=== PATIENT | female | born 1960 | race American Indian/Alaskan Native ===

== ENCOUNTER 2017-03-02 10:55 | Emergency (ER) | payer MEDICAID, OTHER ==
[2017-03-02 11:19] VITALS: BP 161/88
[2017-03-02 11:34] LABS: CHLORIDE,CL 102 mEq/L (98-106); SODIUM,NA 139 mEq/L (136-145)
--- NOTE | 2017-03-02 11:59 | EDM.PDOC ---
ED HPI GENERAL MEDICAL PROBLEM - General Chief Complaint: General Stated Complaint: HEADACHE, DIZZY Time Seen by Provider: 03/02/17 11:40 Source of Information: Reports: Patient, Family History Limitations: Reports: No Limitations - History of Present Illness INITIAL COMMENTS - FREE TEXT/NARRATIVE: Had 2 episodes last night where she had pain in the back of her head that would come up over the top of her head and cause severe pain into her right eye. [place] that part of the right side of her face would go numb and tingled. This lasted about 30-45 minutes and then it completely disappeared and she was fine again. This happened again this morning and presented to the ER. She denies any weakness to the extremities or unilateral facial drooping. Symptoms are resolved when arriving here. Denied any changes in vision with this. States that her blood sugars are very out of control. Doctors at [facility] in [place] for this. Hasn't seen a Dr. in over 6 months and her fastings typically run over 300 lately. Has not adjusted any of her insulin as she hasn' t talked to provider and she didn't know how to on her own. She has been very fatigued also. Onset: Gradual Location: Reports: Head Quality: Reports: Sharp Associated Symptoms: Denies: Chest Pain, Fever/Chills, Nausea/Vomiting, Weakness - Related Data Allergies Allergy/AdvReac Type Severity Reaction Status Date / Time pineapple Allergy Airway Verified 11/12/15 13:51 Tightness shellfish derived Allergy Airway Verified 11/12/15 13:51 Tightness venom-honey bee Allergy Anaphylactic Verified 11/12/15 13:51 [bee venom (honey bee)] Shock Home Meds: Home Meds EPINEPHrine [Epipen] 0.3 mg IM ASDIRECTED PRN 11/12/15 [History] Hydrocodone/Acetaminophen [Hydrocodon-Acetaminoph 7.5-325] 1 - 2 tab PO Q4H PRN 11/12/15 [History] Ibuprofen 200 mg PO Q4H PRN 11/12/15 [History] Insulin Aspart [NovoLOG] 25 unit SUBCUT TIDMEALS 11/12/15 [History] Insulin Detemir [Levemir] 50 units SUBCUT BEDTIME 11/12/15 [History] Meclizine HCl 25 mg PO TID PRN 11/12/15 [History] Pseudoephedrine HCl [Sudafed] 30 mg PO DAILY PRN 11/12/15 [History] Rosuvastatin [Crestor] 10 mg PO DAILY 11/12/15 [History] metFORMIN HCl [Glucophage] 500 mg PO DAILY 11/12/15 [History] Past Medical History HEENT History: Reports: Allergic Rhinitis Cardiovascular History: Reports: High Cholesterol, Hypertension Neurological History: Reports: Vertigo Endocrine/Metabolic History: Reports: Diabetes, Type II - Past Surgical History Female Surgical History: Reports: Section Social & Family History - Family History Family Medical History: Noncontributory - Tobacco Use Smoking Status *Q: Current Every Day Smoker Years of Tobacco use: 40 Packs/Tins Daily: 1 - Recreational Drug Use Recreational Drug Use: No ED ROS GENERAL - Review of Systems Review Of Systems: See Below Constitutional: Reports: No Symptoms HEENT: Reports: Eye Pain. Denies: Vision Change Respiratory: Reports: No Symptoms Cardiovascular: Reports: No Symptoms GI/Abdominal: Reports: No Symptoms : Reports: No Symptoms Musculoskeletal: Reports: No Symptoms Skin: Reports: No Symptoms Neurological: Reports: Headache, Numbness, Tingling ED EXAM, GENERAL - Physical Exam Exam: See Below Exam Limited By: No Limitations General Appearance: Alert, WD/WN, No Apparent Distress. No: Anxious Eye Exam: Bilateral Eye: Normal Inspection, PERRL Ears: Normal External Exam, Normal Canal, Normal TMs Nose: Normal Inspection Throat/Mouth: Normal Inspection, Normal Oropharynx, Normal Voice, No Airway Compromise Head: Atraumatic, Normocephalic Neck: Normal Inspection, Supple, Non-Tender, Full Range of Motion Respiratory/Chest: No Respiratory Distress, Lungs Clear, Normal Breath Sounds Cardiovascular: Normal Peripheral Pulses, Regular Rate, Rhythm, No Edema GI/Abdominal: Normal Bowel Sounds, Soft, Non-Tender, No Organomegaly Extremities: Normal Inspection, Normal Capillary Refill Neurological: Alert, Oriented Skin Exam: Warm, Dry, Intact Course - Vital Signs Last Recorded V/S: Last Vital Signs Temp 97.9 F 03/02/17 11:09 Pulse 89 03/02/17 11:09 Resp 18 03/02/17 11:09 BP 161/88 H 03/02/17 11:09 Pulse Ox 95 03/02/17 11:09 - Orders/Labs/Meds Labs: Laboratory Tests 03/02/17 03/02/17 03/02/17 Range/Units 11:07 11:07 11:10 WBC 12.5 H (5.0-10.0) 10^3/uL RBC 5.28 (4.00-5.50) 10^6/uL Hgb 15.1 (12.0-16.0) g/dL Hct 46.5 (37.0-47.0) % MCV 88.1 (82.0-94.0) fL MCH 28.6 (27.0-32.0) pg MCHC 32.5 L (33.0-38.0) g/dL RDW Coeff of Jere 14.4 (11.0-15.0) % Plt Count 187 (150-400) 10^3/uL Neut % (Auto) 59.5 (35-85) % Lymph % (Auto) 30.8 (10-55) % [place] % (Auto) 7.0 (0-16) % Eos % (Auto) 2.3 (0-5) % Baso % (Auto) 0.4 (0-3) % Neut # (Auto) 7.42 H (1.80-7.00) 10^3/uL Lymph # (Auto) 3.84 (1.00-4.80) 10^3/uL [place] # (Auto) 0.87 H (0.00-0.80) 10^3/uL Eos # (Auto) 0.29 (0.00-0.45) 10^3/uL Baso # (Auto) 0.05 10^3/uL Sodium 139 (136-145) mEq/L Potassium 4.8 D (3.5-5.0) mEq/L Chloride 102 (98-106) mEq/L Carbon Dioxide 28 (21-32) mmol/L BUN 12 (7-18) mg/dL Creatinine 0.9 (0.6-1.0) mg/dL Est Cr Clr Drug Dosing 55.86 mL/min Estimated GFR (MDRD) > 60 (>=60) mL/min Glucose 369 H* D (75-99) mg/dL Calcium 10.0 (8.4-10.1) mg/dL Total Bilirubin 0.5 (0.0-1.0) mg/dL AST 41 H (15-37) U/L ALT 106 H (12-78) U/L Alkaline Phosphatase 120 H (46-116) U/L C-Reactive Protein 0.9 H (0.2-0.8) mg/dL Total Protein 7.1 (6.4-8.2) g/dL Albumin 3.3 L (3.4-5.0) g/dL Urine Color Yellow (YELLOW) Urine Appearance Clear (CLEAR) Urine pH 5.5 (4.5-8.0) Ur Specific [place] 1.015 (1.003-1.020) Urine Protein Negative (NEGATIVE) mg/dL Urine Glucose (UA) >=1000 H (NEGATIVE) mg/dL Urine Ketones Negative (NEGATIVE) mg/dL Urine Occult Blood Negative (NEGATIVE) Urine Nitrite Negative (NEGATIVE) Urine Bilirubin Negative (NEGATIVE) Urine Urobilinogen 0.2 (0.2-1.0) EU/dL Ur Leukocyte Esterase Negative (NEGATIVE) Urine RBC Not seen (0-5) /HPF Urine WBC Not seen (0-5) /HPF Ur Squamous Epith Cells Few H (NOT SEEN) /HPF - Re-Assessments/Exams Free Text/Narrative Re-Assessment/Exam: 03/02/17 12:30 In to discuss normal CT results. Discussed need to get blood sugars under better control and will adjust insulin today. She states that she has appt at [facility] on 03/13/17 and will hopefully transfer care to here as she now will qualify for medicaid. Will schedule carotid ultrasound in the near future. 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 appt on March 13 as scheduled Important to get your blood sugars back into control as soon as possible - Problem List & Annotations (1) Diabetes SNOMED Code(s): 15146317 Code(s): E11.9 - TYPE 2 DIABETES MELLITUS WITHOUT COMPLICATIONS Status: Acute Priority: High Qualifiers: Diabetes mellitus type: type 2 Diabetes mellitus complication status: with unspecified complications Diabetes mellitus long term care administrator insulin use: with half-way use Qualified Code(s): E11.8 - Type 2 diabetes mellitus with unspecified complications; Z79.4 - intermediate frame tender (current) use of insulin; Z79.4 - prison ( current) use of insulin; Z79.4 - intermediate frame tender (current) use of insulin; Z79.4 - prison (current) use of insulin (2) Headache SNOMED Code(s): 32495161 Code(s): R51 - HEADACHE Status: Acute Priority: Medium Qualifiers: Headache type: unspecified Headache chronicity pattern: acute headache Intractability: not intractable Qualified Code(s): R51 - Headache (3) TIA (transient ischemic attack) SNOMED Code(s): 966164954 Code(s): G45.9 - TRANSIENT CEREBRAL ISCHEMIC ATTACK, UNSPECIFIED Status: Acute Priority: High Qualifiers: Transient cerebral ischemia type: unspecified Qualified Code(s): G45.9 - Transient cerebral ischemic attack, unspecified - Problem List Review Problem List Initiated/Reviewed/Updated: Yes
== END 2017-03-02 12:15 | disposition home or self-care (01) ==
LOC: CC.ED 10:55
DX: G45.9 Transient cerebral ischemic attack, unspecified (principal); E11.8 Type 2 diabetes mellitus with unspecified complications; I10 Essential (primary) hypertension; E78.00 Pure hypercholesterolemia, unspecified; E11.9 Type 2 diabetes mellitus without complications; F17.210 Nicotine dependence, cigarettes, uncomplicated; Z79.4 Long term (current) use of insulin; Z79.899 Other long term (current) drug therapy; Z91.030 Bee allergy status; Z91.018 Allergy to other foods
CPT/HCPCS: 36415; 70450; 80053; 81001; 85025; 86140; 99284

== ENCOUNTER 2017-05-25 20:04 | Emergency (ER) | payer MEDICAID, OTHER ==
--- NOTE | 2017-05-25 20:20 | EDM.PDOC ---
ED HPI GENERAL MEDICAL PROBLEM - General Chief Complaint: Upper Extremity Injury/Pain Stated Complaint: R)SHOULDER PAIN Time Seen by Provider: 05/25/17 20:19 Source of Information: Reports: Patient History Limitations: Reports: No Limitations - History of Present Illness INITIAL COMMENTS - FREE TEXT/NARRATIVE: This patient is a 56 year old female that presents to the ER. Patient reports that she has a history of having chronic right shoulder pain with multiple surgeries and PT. Patient reports a couple of times a year her right shoulder flares up and has increased pain. She reports that she does not recall injury new. Patient reports that the shoulder hurts to move. She reports this is her chronic pain that is having a flare. Patient reports full ROM makes it hurt worse. She reports keeping arm in sling position improves pain. Patient denies galvan, dizziness, n, v, d, f, neck pain, neck stiffness, cp, soa, abd pain. Pulses +2, cap refill <2 sec, sensory intact. Neurovascular intact. Motor decreased due to pain. Onset: Today Onset Date: 05/25/17 Onset Time: 09:30 Location: Reports: Upper Extremity, Right Quality: Reports: Ache, Same as Previous Episode, Throbbing Severity: Moderate Improves with: Reports: Immobilization Worsens with: Reports: Movement Associated Symptoms: Denies: Confusion, Chest Pain, Cough, cough w sputum, Diaphoresis, Fever/Chills, Headaches, Loss of Appetite, Malaise, Nausea/Vomiting , Rash, Seizure, Shortness of Breath, Syncope, Weakness Right Shoulder Pain Score (Numeric/FACES): 7 - Related Data Allergies Allergy/AdvReac Type Severity Reaction Status Date / Time pineapple Allergy Airway Verified 05/25/17 20:12 Tightness shellfish derived Allergy Airway Verified 05/25/17 20:12 Tightness venom-honey bee Allergy Anaphylactic Verified 05/25/17 20:12 [bee venom (honey bee)] Shock Home Meds: Home Meds EPINEPHrine [Epipen] 0.3 mg IM ASDIRECTED PRN 11/12/15 [History] Hydrocodone/Acetaminophen [Hydrocodon-Acetaminoph 7.5-325] 1 - 2 tab PO Q4H PRN 11/12/15 [History] Ibuprofen 200 mg PO Q4H PRN 11/12/15 [History] Insulin Aspart [NovoLOG] 25 unit SUBCUT TIDMEALS 08/26/16 [History] Insulin Detemir [Levemir] 50 units SUBCUT BEDTIME 11/12/15 [History] Meclizine HCl 25 mg PO TID PRN 11/12/15 [History] Pseudoephedrine HCl [Sudafed] 30 mg PO DAILY PRN 11/12/15 [History] Rosuvastatin [Crestor] 10 mg PO DAILY 11/12/15 [History] metFORMIN HCl [Glucophage] 500 mg PO DAILY 11/12/15 [History] Past Medical History HEENT History: Reports: Allergic Rhinitis Cardiovascular History: Reports: High Cholesterol, Hypertension Neurological History: Reports: Vertigo Endocrine/Metabolic History: Reports: Diabetes, Type II - Past Surgical History Female Surgical History: Reports: Section Musculoskeletal Surgical History: Reports: Shoulder Surgery Social & Family History - Family History Family Medical History: Noncontributory - Tobacco Use Smoking Status *Q: Current Every Day Smoker Years of Tobacco use: 30 Packs/Tins Daily: 1 - Caffeine Use Caffeine Use: Reports: Coffee - Recreational Drug Use Recreational Drug Use: No Review of Systems - Review of Systems Review Of Systems: See Below Constitutional: Reports: No Symptoms Eyes: Reports: No Symptoms Ears: Reports: No Symptoms Nose: Reports: No Symptoms Mouth/Throat: Reports: No Symptoms Respiratory: Reports: No Symptoms Cardiovascular: Reports: No Symptoms GI/Abdominal: Reports: No Symptoms Genitourinary: Reports: No Symptoms Musculoskeletal: Reports: Shoulder Pain (Right), Joint Pain (Right shoulder). Denies: Neck Pain, Arm Pain, Back Pain, Hand Pain, Leg Pain, Foot Pain, Joint Swelling, Muscle Pain, Muscle Stiffness Skin: Reports: No Symptoms Neurological: Reports: No Symptoms Psychiatric: Reports: No Symptoms ED EXAM, GENERAL - Physical Exam Exam: See Below Exam Limited By: No Limitations General Appearance: Alert, WD/WN, No Apparent Distress Head: Atraumatic, Normocephalic Neck: Normal Inspection, Supple, Non-Tender, Full Range of Motion Respiratory/Chest: No Respiratory Distress, Lungs Clear, Normal Breath Sounds, No Accessory Muscle Use, Chest Non-Tender Cardiovascular: Normal Peripheral Pulses, Regular Rate, Rhythm, No Edema, No Gallop, No JVD, No Murmur, No Rub Peripheral Pulses: 2+: Brachial (L), Brachial (R), Radial (L), Radial (R) Back Exam: Normal Inspection, Full Range of Motion. No: Muscle Spasm, Paraspinal Tenderness, Vertebral Tenderness Extremities: Normal Inspection, No Pedal Edema, Normal Capillary Refill, Other ( Right shoulder anterior/posterior pain, tenderness. ROM intact, but limited to pain. Pain easily manipulated. Pulses +2, cap refill <2 sec, sensory intact. Neurovascular intact. ) Neurological: Alert, Oriented, Normal Cognition, Normal Gait Psychiatric: Normal Affect, Normal Mood Skin Exam: Warm, Dry, Intact, Normal Color, No Rash Lymphatic: No Adenopathy Course - Vital Signs Last Recorded V/S: Last Vital Signs Temp 96.7 F 05/25/17 20:05 Pulse 107 H 05/25/17 20:05 Resp 20 05/25/17 20:05 BP 131/100 H 05/25/17 20:05 Pulse Ox 96 05/25/17 20:05 - Orders/Labs/Meds Meds: Medications Discontinued Medications Generic Name Dose Route Start Last Admin Trade Name Jayjay PRN Reason Stop Dose Admin Ketorolac Tromethamine 60 mg 05/25/17 20:28 05/25/17 20:34 Toradol IM 05/25/17 20:29 60 mg ONETIME ONE Administration Methylprednisolone Sodium Succinate 125 mg 05/25/17 20:25 05/25/17 20:35 Solu-Medrol IM 05/25/17 20:26 125 mg NOW STA Administration Morphine Sulfate 4 mg 05/25/17 20:24 05/25/17 20:36 Morphine IM 05/25/17 20:25 Not Given ONETIME ONE Ondansetron HCl 4 mg 05/25/17 20:24 05/25/17 20:30 Zofran Odt PO 05/25/17 20:25 4 mg ONETIME ONE Administration Departure - Departure Time of Disposition: 20:27 Disposition: Home, Self-Care 01 Condition: Good Clinical Impression: Right shoulder pain Qualifiers: Chronicity: chronic Qualified Code(s): M25.511 - Pain in right shoulder - Discharge Information Instructions: Shoulder Pain Referrals: Rhina Castellanos PA [Primary Care Provider] - Forms: ED Department Discharge Additional Instructions: Followup with your primary care provider Return to the ER for worsening of condition or any emergent concerns Rest Ice Elevate Sling as needed Prednisone 20mg 1 pll twice a day for 5 days #10 no refill - Assessment/Plan Plan: PLEASE SEE RN NOTE FOR PFSH.
[2017-05-25] MEDS ORDERED: Ondansetron 4 MG Tab.DIS PO ONE (20:24)
[2017-05-25] MEDS ORDERED: Morphine 4 MG/ML Syringe IM ONE (20:24)
[2017-05-25] MEDS ORDERED: methylPREDNISolone Sodium Succinate 125 MG/2 ML SDV IM STA (20:25)
[2017-05-25] MEDS ORDERED: Ketorolac 60 MG/2 ML SDV IM ONE (20:28)
[2017-05-25 20:52] VITALS: BP 138/79
== END 2017-05-25 20:50 | disposition home or self-care (01) ==
LOC: CC.ED 20:04
DX: G89.29 Other chronic pain (principal); M25.511 Pain in right shoulder; I10 Essential (primary) hypertension; E78.00 Pure hypercholesterolemia, unspecified; E11.9 Type 2 diabetes mellitus without complications; F17.210 Nicotine dependence, cigarettes, uncomplicated; Z79.4 Long term (current) use of insulin; Z79.899 Other long term (current) drug therapy; Z91.030 Bee allergy status; Z91.013 Allergy to seafood; Z91.018 Allergy to other foods
CPT/HCPCS: 96372; 96374; 96375; 99282; A9270-GY; J1885; J2930

== ENCOUNTER 2022-04-17 17:50 | Emergency (ER) | payer MEDICARE, MEDICAID ==
[2022-04-17 17:59] VITALS: BP 152/61; PULSE 88
[2022-04-17] MEDS ORDERED: Ketorolac 30 MG/ML SDV IM ONE (18:21)
== END 2022-04-17 20:20 | disposition home or self-care (01) ==
LOC: CC.ED 17:50
DX: M65.28 Calcific tendinitis, other site (principal); E78.00 Pure hypercholesterolemia, unspecified; I10 Essential (primary) hypertension; E11.9 Type 2 diabetes mellitus without complications; Z91.018 Allergy to other foods; Z91.013 Allergy to seafood; Z91.030 Bee allergy status; Z79.899 Other long term (current) drug therapy; Z79.4 Long term (current) use of insulin
CPT/HCPCS: 73564-RT; 96372; 99283; J1885

== ENCOUNTER 2023-11-09 15:19 | Emergency (ER) | payer MEDICARE, MEDICAID ==
[2023-11-09 15:30] VITALS: BP 128/56; PULSE 100
== END 2023-11-09 16:42 | disposition home or self-care (01) ==
LOC: CC.ED 15:19
DX: S93.621A Sprain of tarsometatarsal ligament of right foot, initial encounter (principal); I10 Essential (primary) hypertension; E78.00 Pure hypercholesterolemia, unspecified; E11.9 Type 2 diabetes mellitus without complications; Z79.899 Other long term (current) drug therapy; Z79.4 Long term (current) use of insulin; Z91.030 Bee allergy status; Z91.013 Allergy to seafood; Z91.018 Allergy to other foods; W18.2XXA Fall in (into) shower or empty bathtub, initial encounter
CPT/HCPCS: 73610-RT; 73630-RT; 99283